=== PATIENT | male | born 1975 | race Caucasian/White ===

== ENCOUNTER 2019-06-12 01:28 | Emergency (ER) | payer BC, SELFPAY ==
--- NOTE | 2019-06-12 00:50 | RAD_ITS ---
HISTORY: C/O SWALLOWED A PIECE OF STEAK AROUND 2029 AND IT CAME LODGED. HE IS UNABLE TO SWALLOW WATER EXAM: XR Chest 1 View COMPARISON: None FINDINGS: LINES/DEVICES: None. LUNGS: There are chronic interstitial changes. No pneumothorax. No consolidation or effusion. MEDIASTINUM AND CARDIOVASCULAR STRUCTURES: Cardiac silhouette not enlarged. Central airways and mediastinal contour are unremarkable. Athersclerotic plaque within the aortic arch. BONES AND SOFT TISSUES: Thoracic spondylosis. RAD/Chest 1 View (Portable) IMPRESSION: Chronic interestitial changes. No radiographic evidence of acute cardiopulmonary disease. at 0118 Reported and signed by: Cesario Quintana MD Electronically Signed: Cesario Quintana MD at 1:17 EDT Tel , Service support ,
[2019-06-12 01:29] VITALS: BP 143/88; PULSE 79; RESP 20; TEMP 35.9; O2SAT 100; BMI 30.2
[2019-06-12 01:40] VITALS: BP 139/88; PULSE 74; RESP 16; O2SAT 98
--- NOTE | 2019-06-12 01:50 | ED.VIS.GEN ---
History of Present Illness Chief Complaint: Foreign Body Informant: Patient, Significant Other Onset: Hours - 5-6 Context: Sudden Onset Timing: Continuous Quality: stuck Location: upper mid-chest Current Severity: Severe Maximum Severity: Severe Worsened by: vomiting, trying to drink fluids Relieved by: nothing Associated Symptoms: vomiting when tries to drink Narrative: Patient got a piece of steak stuck in his esophagus as he was swallowing at earlier. He has had this happen 4 or 5 times before but has always been able to get at the past with drinking fluids, but not tonight. Every time he tries to drink something he is vomiting. Denies any shortness of breath. He went to the local emergency room in [place], they did not give him any medications, told him GI was not available, they left and came here. Past Medical History - Allergies and Home Meds Allergies/Adverse Reactions: Allergies No Known Allergies Allergy (Verified 06/12/19 01:29 EDT) Primary Care Physician: NOT,DEFINED [Primary Care Provider] - Past Medical History: None Lives: Spouse/ Significant Other Smoking Status: Never smoker Review of Systems General: Denies: Chills, Fever, Sweats Eyes: Denies: Visual changes - bilaterally, Diplopia ENT: Denies: Rhinorrhea, Sore throat Cardiovascular: Reports: Chest pain - Discomfort from foreign body, upper chest/esophagus. Denies: Palpitations Respiratory: Denies: Dyspnea, Cough, Dyspnea on exertion Gastrointestinal: Denies: Abdominal pain, Nausea, Vomiting, Diarrhea, Melena, Hematochezia Genitourinary: Denies: Dysuria, Hematuria, Frequency Musculoskeletal: Denies: Back pain, Extremity Pain Skin: Denies: Rash, Wounds Neurological: Denies: Headache, Weakness, Numbness Physical Exam Vital Signs/Narrative: Vital Signs Temp Pulse Resp BP Pulse Ox 06/12/19 01:29 EDT 96.7 F L 79 20 H 143/88 H 100 Inital Vital Signs reviewed: Yes General: Well nourished, Well developed, No Acute Distress - Very uncomfortable Head: Normocephalic, Atraumatic Eyes: Perrl, EOMI ENT: Moist mucous membranes, No rhinorrhea Neck: Supple, Nontender Cardiovascular: Regular rate, Regular rhythm, No murmurs Respiratory: No distress, CTA bilaterally, Chest nontender, - - Equal breath sounds bilaterally Abdomen: Soft, Nontender, Nondistended Skin: Normal color, No rash Neurological: Alert, Oriented x3, Cranial nerves II-XII grossly intact, Normal Strength, Normal Sensation Psychological: Normal Mood, - - Anxious Diagnostic/Tx/Re-eval Chest X-Ray - ED: 1 View, Read by ED Physician, No Acute Disease - Medical Decision Making Patient was given Zofran and glucagon. He started vomiting again and this time was able to vomit the piece of meat up, and felt the obstruction clear. He felt much better. He was given oral fluids and passed them without difficulty. Plan is for outpatient GI follow-up, we discussed diet and to avoid any meats. He is comfortable with that plan. ED Disposition - Plan for ED Patient: Disposition: Home or Assisted Living Diagnosis: Esophageal foreign body Instructions: ESOPHAGEAL FOREIGN BODY, Resolved Referrals: NOT,DEFINED [[facility] Care [facility] (Call for outpatient appointment)
[2019-06-12] MEDS: Ondansetron 4 MG/2 ML Vial IV (01:59)
[2019-06-12] MEDS: Glucagon 1 MG/ML Syringe IM (01:59)
[2019-06-12] MEDS: 0.9% Normal Saline 1,000 ML 200 ML IV (01:59)
== END 2019-06-12 01:42 | disposition home or self-care (01) ==
PROVIDERS: Emergency Provider Emergency Medicine
DX: T18.108A Unspecified foreign body in esophagus causing other injury, initial encounter (principal); X58.XXXA Exposure to other specified factors, initial encounter; Y93.89 Activity, other specified; Y92.9 Unspecified place or not applicable; M47.9 Spondylosis, unspecified
CPT/HCPCS: 71045; 96361; 96372; 96374; 99283; J7030; A4216; J1610; J2405